=== PATIENT | female | born 1970 | race Caucasian/White ===

== ENCOUNTER 2025-10-12 09:33 | Outpatient (REF) | payer OTHER, SELFPAY ==
[2025-10-12 18:03] LABS: MANUAL DIFF FLAG NO
[2025-10-12 18:16] LABS: Hematocrit 41.5 % (37.0-47.0); Hemoglobin 13.1 g/dl (12.0-16.0); Imm Gran Abs Auto 0.02 X10*3/uL (0.00-0.03); Imm Gran Pct Auto 0.3 % (0.0-0.4); Lymphocytes Absolute Auto 2.0 X10*3/uL (1.2-4.9); Mean Corpuscular HGB Conc 31.6 g/dl (31.0-35.0); Mean Corpuscular Hemoglobin 27.1 pg (27.0-33.0); Mean Corpuscular Volume 85.7 fL (80.0-98.0); NRBC Abs Auto 0.000 X10*3/uL (0.0-0.012); NRBC Pct Auto 0.0 /100WBC (0.0-0.2); Platelet Count 441 X10*3/uL (160-400); Red Blood Count 4.84 X10*6/uL (4.20-5.50); White Blood Count 6.9 X10*3/uL (4.8-10.8)
[2025-10-12 19:22] LABS: Alanine Aminotransferase 39 U/L (0-31); Albumin Level 4.6 g/dL (3.5-5.0); Alkaline Phosphatase 92 U/L (39-117); Anion Gap 13 (12-20); Aspartate Amino Transferase 27 U/L (5-31); Blood Urea Nitrogen 14 mg/dL (9-16); Calcium 9.8 mg/dL (8.4-10.2); Carbon Dioxide 26 mmol/L (22-29); Chloride 106 mmol/L (96-108); Cholesterol 230 mg/dL (<200); Estimated Glomerular Filt Rate > 60; HDL Cholesterol 63 mg/dL (>40); Iron 74 mcg/dL (30-160); Percent Iron Saturation 24 % (15-50); Potassium 4.5 mmol/L (3.3-5.1); Sodium 140 mmol/L (135-145); Total Iron Binding Capacity 308 mcg/dL (228-428); Total Protein 7.7 g/dL (6.5-8.0); Triglycerides 69 mg/dL (<150); Unsaturated Iron Binding 234 ug/dL
== END 2025-10-12 09:34 | disposition home or self-care (01) ==
LOC: HO.WFDLDS 09:33
PROVIDERS: Visit Provider Internal Medicine
DX: Z00.00 Encounter for general adult medical examination without abnormal findings (principal); Z13.0 Encounter for screening for diseases of the blood and blood-forming organs and certain disorders involving the immune mechanism; Z13.228 Encounter for screening for other metabolic disorders; Z13.220 Encounter for screening for lipoid disorders; Z86.2 Personal history of diseases of the blood and blood-forming organs and certain disorders involving the immune mechanism
CPT/HCPCS: 36415; 80053; 80061; 83540; 84443; 85025; 96127

== ENCOUNTER 2025-10-12 09:33 | Outpatient (AMB) | payer OTHER, SELFPAY ==
--- NOTE | 2025-10-12 09:46 | A.OFFPC_ITS ---
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 Intake Note: New patient visit Payroll Technician Required: No Accompanied by: Spouse Allergies Penicillins Allergy (Unknown, Verified 10/12/25 09:54) unknown Tobacco use date assessed: 10/12/25 Dental Screening Dental Screen Date: 10/12/25 Did you have a dental visit in the last 12 months?: Yes Did you have a dental problem in the last 6 months where you did not have access to dental care?: No Was dental information given to patient?: Patient has dentist HPI HPI Comments History of Present Illness Details The patient is a 55 year old female with past medical history of allergies, sinusitis presenting to [facility] care[facility]. Transfer from [facility]. Had history of DUB/anemia, now menopause Notes changes in bowel function, increased constipation, change in stools Mammogram 2023 Colonoscopy Shingles vaccine ++ Declines flu vaccination ROS see HPI PHYSICAL EXAM: GENERAL: Alert and oriented x 3. NAD EYES: EOMI. Anicteric. HENT: Moist mucous membranes. No scleral icterus. No cervical lymphadenopathy. LUNGS: Clear to auscultation bilaterally. CARDIOVASCULAR: Regular rate and rhythm. No murmur. No JVD. ABDOMEN: Soft, non-tender +bs EXTREMITIES: No edema. Non-tender. SKIN: No rashes or lesions. Warm. NEUROLOGIC: No focal neurological deficits. CN II-XII grossly intact PSYCHIATRIC: Cooperative. Appropriate mood and affect [facility] Surgical History (Updated 10/12/25 @ 09:59 by Allyssa Meadows CMA) History of appendectomy H/O dilation and curettage H/O section Family History (Updated 10/12/25 @ 10:00 by Allyssa Meadows CMA) Father Anxiety HTN (hypertension) Cardiovascular disease Mother HTN (hypertension) Diabetes Other FH: mental illness Social History (Updated 10/12/25 @ 10:00 by Allyssa Meadows CMA) Housing: House Alcohol intake: never Patient Tobacco Use Status: Never used Tobacco e-Cigarette/Vaping Use: Never Used Second Hand Smoke Exposure: No service: No Current occupational status: unemployed Cognitive needs: No Hearing needs: No Vision needs: Yes (reading glasses) Questionnaire PHQ-9 Over the last 2 weeks, how often have you been bothered by any of the following problems? 1. Little interest or pleasure in doing things: several days 2. Feeling down, depressed, or hopeless: several days 3. Trouble falling or staying asleep, or sleeping too much: several days 4. Feeling tired or having little energy: several days 5. Poor appetite or overeating: not at all 6. Feeling bad about yourself - or that you are a failure or have let yourself or your family down: several days 7. Trouble concentrating on things, such as reading the newspaper or watching television: not at all 8. Moving or speaking so slowly that other people could have noticed. Or the opposite - being so fidgety or restless that you have been moving around a lot more than usual: not at all 9. Thoughts that you would be better off or of hurting yourself in some way: not at all Total score: 5 Depression Screening Interpretation: Positive Depression Screening Follow-up: Existing condition Depression Screening Done: Yes 98290 - PHQ-9 Billing: Yes Source: Developed by Drs. Rojas Robledo, Yen Guzman, Kush Sánchez and colleagues, with an educational nelson from [employer]. Thrive Questionnaire Date Thrive assessed: 10/12/25 I am a: Patient What is your living situation today?: I have a steady place to live Within the past 12 months, did the food you bought not last and you didn't have the money to get more?: Never true Within the past 12 months, did you worry whether your food would run out before you got money to buy more?: Never true Do you have trouble paying for medicines?: No Do you have trouble getting transportation to medical appointments?: No Do you have trouble paying your heating and electricity bill?: No Do you have trouble taking care of your child, family member or friend?: No Do you have trouble with day-to-day activities such as bathing, preparing meals, shopping, managing finances, etc.?: No Are you currently unemployed and looking for a job?: No Are you interested in more education?: No Please select the resources that you would like help with: None Currently or been in a relationship where the following occur: No concerns reported THRIVE Score: 0 AUDIT C Alcohol Use Questionnaire (AUDIT-C) 1. How often do you have a drink containing alcohol?: Never 3. How often do you have six or more drinks on one occasion?: Never Total Score: 0 ALYSIA-7 AMB Questionnaire ALYSIA-7 Date ALYSIA - 7 assessed: 10/12/25 Feeling nervous, anxious, or on edge: 3 = Nearly every day Not being able to stop or control worryin = Not at all Worrying too much about different things: 3 = Nearly every day Trouble relaxin = Not at all Being so restless that it is hard to sit still: 0 = Not at all Becoming easily annoyed or irritable: 0 = Not at all Feeling afraid as if something awful might happen: 3 = Nearly every day Total ALYSIA-7 score (0-4 normal; 5-9 mild; 10-14 moderate; 15-21 severe): 9 Source: Developed by Drs. Rojas Robledo, Yen Guzman, Kush Sánchez and colleagues, with an educational nelson from [employer]. ALYSIA-7 Assessment Billing ALYSIA-7 Assessment Tool: ALYSIA-7 Assessment 79952 Physical exam (Primary Care) Vital Signs: Last Vital Signs Temp 98.1 F 10/12/25 09:47 Pulse 79 10/12/25 09:47 Resp 14 10/12/25 09:47 BP 108/64 10/12/25 09:47 Pulse Ox 99 10/12/25 09:47 Oxygen Delivery Method Room Air 10/12/25 09:47 BMI result Body Mass Index 24.2 Tobacco/Smoking Status: Tobacco use Status Tobacco use date assessed 10/12/25 10/12/25 09:57 Patient Tobacco Use Status Never used Tobacco 10/12/25 10:00 e-Cigarette/Vaping Use Never Used 10/12/25 09:57 PHQ-9: PHQ-9 Score PHQ-9: Total score 5 10/12/25 10:06 Depression Screening Interpretation: Positive Depression Screening Follow-up: E xisting condition Thrive Assessment: Date of Thrive Assessment Date Thrive assessed 10/12/25 10/12/25 10:01 Currently or been in a relationship where the following occur: No concerns reported Coding Level of Care Code New Pt Prev Care 40-64y(09334) Diagnoses Encounter for physical examination Z00.00 Additional Codes ALYSIA-7 Assessment Billing - ALYSIA-7 Assessment Tool: ALYSIA-7 Assessment 44677 ([id number]) PHQ-9 - 87494 - PHQ-9 Billing: Yes ([id number]) Assessment & Plan Assessment & Plan (1) Encounter for physical examination: Code(s): Z00.00 - Encounter for general adult medical examination without abnormal findings Plan 55 year old for physical exam/establish care Past medical, surgical, social reviewed Preventive measures for age discussed Bowel changes, due for colonoscopy, 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 Panel 10/12/25 Z00.00 - Encounter for general adult medical examination without abnormal findings, Z13.0 - Encounter for screening for diseases of the blood and blood-forming organs and certain disorders involving the immune mechanism, Z13.220 - Encounter for screening for lipoid disorders, Z13.228 - Encounter for screening for other metabolic disorders Lipid Panel 10/12/25 Z00.00 - Encounter for general adult medical examination without abnormal findings, Z13.0 - Encounter for screening for diseases of the blood and blood-forming organs and certain disorders involving the immune mechanism, Z13.220 - Encounter for screening for lipoid disorders, Z13.228 - Encounter for screening for other metabolic disorders TSH reflex Free T4 10/12/25 Z00.00 - Encounter for general adult medical examination without abnormal findings, Z13.0 - Encounter for screening for diseases of the blood and blood-forming organs and certain disorders involving the immune mechanism, Z13.220 - Encounter for screening for lipoid disorders, Z13.228 - Encounter for screening for other metabolic disorders Pancreatic Elastase-1 Today R19.8 - Other specified symptoms and signs involving the digestive system and abdomen Calprotectin, Fecal Today R19.8 - Other specified symptoms and signs involving the digestive system and abdomen US thyroid 10/12/25 E04.9 - Nontoxic goiter, unspecified MM tomosynthesis screening BI 10/12/25 Z12.31 - Encounter for screening mammogram for malignant neoplasm of breast IRON PROFILE 10/12/25 Z86.2 - Personal history of diseases of the blood and blood-forming organs and certain disorders involving the immune mechanism Referrals ACTING SECTION CHIEF Referral Z12.4 - Encounter for screening for malignant neoplasm of cervix Gastroenterology Referral R19.8 - Other specified symptoms and signs involving the digestive system and abdomen
[2025-10-12 09:47] VITALS: BP 108/64; PULSE 79; RESP 14; TEMP 36.7; O2SAT 99; BMI 24.2
== END 2025-10-12 10:33 | disposition home or self-care (01) ==
LOC: HO.HMCFM 09:33
PROVIDERS: Visit Provider Internal Medicine
DX: Z00.00 Encounter for general adult medical examination without abnormal findings (principal)

== ENCOUNTER 2025-10-13 06:45 | Outpatient (REF) | payer OTHER, SELFPAY ==
--- OUTSIDE RECORDS SUMMARY | 2025-10-13 15:29 | XMS_ITS ---
Author Name [facility] Organization Unknown Care Team Organization Name Specialty Phone Email Start Date End [facility] 11/18/2023
== END 2025-10-13 06:46 | disposition home or self-care (01) ==
LOC: HO.LNP 06:45
PROVIDERS: Visit Provider Internal Medicine
DX: R19.8 Other specified symptoms and signs involving the digestive system and abdomen (principal)
CPT/HCPCS: 82656; 83993